=== PATIENT | male | born 1960 | race Caucasian/White ===

== ENCOUNTER 2024-08-08 08:57 | Day surgery (SDC) | payer BC ==
[~2024-08-08 08:57] MED LIST: Metoclopramide 10 MG/2 ML SDV IV PRN
[2024-08-08] MEDS: Sodium Chloride 0.9% 1,000 ML IV SCH (09:44)
[2024-08-08] MEDS ORDERED: Propofol 500 MG/50 ML SDV ONE (10:00)
== END 2024-08-08 10:45 | disposition home or self-care (01) ==
LOC: LB.SDS 08:57
PROVIDERS: ATTEND Surgery
DX: Z12.11 Encounter for screening for malignant neoplasm of colon (principal); D12.4 Benign neoplasm of descending colon; K57.30 Diverticulosis of large intestine without perforation or abscess without bleeding; I10 Essential (primary) hypertension; E78.00 Pure hypercholesterolemia, unspecified; Z79.899 Other long term (current) drug therapy
CPT/HCPCS: 88305; J2704; J7030